=== PATIENT | male | born 1990 | race Caucasian/White ===

== ENCOUNTER 2017-12-30 03:49 | Emergency (ER) | payer BC ==
[~2017-12-30] VITALS: Ht 182.9 cm; Wt 109.2 kg
[~2017-12-30 03:49] MED LIST: AUGMENTIN875TAB PO; CEPHALEXIN500 MG PO; MEDDOSEPAK PO; NO HOME MEDS; PROAIR HFA IN; ROBITUSSIN AC10 ML PO; VENTOLIN HFA IN; ZOFRAN ODT8 MG PO
[2017-12-30 04:32] LABS: HEMATOCRIT 41.4 % (39.0-50.0); HEMOGLOBIN 14.7 g/dl (14.0-18.0); IMMATURE GRANULOCYTES 0.5 % (0.0-5.0); MEAN CORPUSCULAR HGB 31.2 pG CALC (26.0-32.0); MEAN CORPUSCULAR HGB CONC 35.5 g/L CALC (32.0-36.0); NEUT# 4.8 thou/uL (1.82-7.42); RED BLOOD COUNT 4.71 mill/uL (4.70-6.10)
[2017-12-30 04:37] LABS: MEAN CELL VOLUME 87.9 fL CALC (80.0-100.0)
[2017-12-30 04:39] LABS: ALBUMIN 4.5 g/dL (3.2-5.0); ALKALINE PHOSPHATASE 89 u/l (38-126); AMYLASE 41 u/l (30-110); BUN 11 mg/dL (9-20); BUN/CREATININE RATIO 11 (12-20 (CALC)); CARBON DIOXIDE 23 mmol/l (22-30); CHLORIDE 105 mmol/l (95-108); CREATININE 1.1 mg/dL (0.7-1.3); GFR > 60 ML/MIN (>=60 (CALC)); GFR FOR AFR.AMER. > 60 ML/MIN (>=60 (CALC)); LIPASE 36 u/l (23-300); SGOT/AST 25 u/l (17-59); SGPT/ALT 31 u/l (21-72); SODIUM 143 mmol/l (137-146); TOTAL PROTEIN 8.3 g/dL (6.3-8.2)
[2017-12-30 04:45] LABS: ANION GAP 18 (6-22 (CALC))
[2017-12-30 06:34] LABS: URINE BLOOD DIPSTICK LARGE (NEGATIVE); URINE GLUCOSE - DIPSTICK NEGATIVE (NEGATIVE); URINE KETONE TRACE mg/dL (NEGATIVE); URINE LEUK ESTERASE NEGATIVE (NEGATIVE); URINE PH 5.5 (4.5-8.0); URINE PROTEIN - DIPSTICK 100 mg/dL (NEG-TRACE); URINE SPECIFIC GRAVITY >=1.030
[2017-12-30 06:35] LABS: URINE BACTERIA MANY hpf; URINE BILIRUBIN - DIPSTICK SMALL (NEGATIVE); URINE CLARITY TURBID; URINE COLOR BROWN; URINE EPITHELIAL CELLS FEW EPI/hpf (0-FEW); URINE NITRITE - DIPSTICK POSITIVE (Negative); URINE RBC 25-50 RBC/hpf (0-5)
[2017-12-30 06:36] LABS: URINE AMORPH SEDIMENT MANY hpf (NONE-FER)
[2017-12-30] MEDS ORDERED: TAMSULOSIN0.4 MG PO (10:20)
[2017-12-30] MEDS ORDERED: CEPHALEXIN500 M1 PO (10:20)
[2017-12-30] MEDS ORDERED: HYDROCO/APAP1 TA9 PO (10:20)
[2017-12-30] MEDS ORDERED: MOTRIN400 MG PO (10:20)
[2017-12-30 11:15] VITALS: BP 158/71
== END 2017-12-30 11:35 | disposition still patient (30) | DRG 694 ==
LOC: ED 03:49
PROVIDERS: Family Medicine
DX: N20.1 Calculus of ureter (principal); J45.909 Unspecified asthma, uncomplicated

== ENCOUNTER 2018-05-20 19:56 | Emergency (ER) | payer BC ==
[~2018-05-20] VITALS: Ht 182.9 cm; Wt 112.4 kg
[~2018-05-20 19:56] MED LIST changes: +CEPHALEXIN500 M1 PO; +HYDROCO/APAP1 TA9 PO; +MOTRIN400 MG PO; +TAMSULOSIN0.4 MG PO
[2018-05-20] MEDS ORDERED: KEFLEX500 M1 PO (21:06)
[2018-05-20 21:11] VITALS: BP 113/71
== END 2018-05-20 21:11 | disposition home or self-care (01) | DRG 605 ==
LOC: ED 19:56
PROC: 0HQFXZZ Repair Right Hand Skin, External Approach (ICD-10-PCS; principal; 2018-05-20)
DX: S61.210A Laceration without foreign body of right index finger without damage to nail, initial encounter (principal); W26.0XXA Contact with knife, initial encounter; Y92.009 Unspecified place in unspecified non-institutional (private) residence as the place of occurrence of the external cause

== ENCOUNTER 2021-03-20 01:41 | Emergency (ER) | payer BC ==
[~2021-03-20] VITALS: Ht 182.9 cm; Wt 120.0 kg
[~2021-03-20 01:41] MED LIST changes: +KEFLEX500 M1 PO
[2021-03-20] MEDS ORDERED: VENTOLIN HFA IN (02:40)
[2021-03-20] MEDS ORDERED: PREDNISONE50 MG PO (02:40)
[2021-03-20 03:40] VITALS: BP 130/85
== END 2021-03-20 03:40 | disposition home or self-care (01) | DRG 203 ==
LOC: ED 01:41
DX: J45.901 Unspecified asthma with (acute) exacerbation (principal)

== ENCOUNTER 2023-05-10 11:01 | Emergency (ER) | payer OTHER, MEDICAID ==
[~2023-05-10] VITALS: Ht 182.9 cm; Wt 129.0 kg
[2023-05-10] VITALS (14 sets, daily range): BP systolic 110–147; BP diastolic 61–86
[~2023-05-10 11:01] MED LIST changes: +PREDNISONE50 MG PO; +PROVENTIL HFA108 MCG INHW/SPAC; +TORADOL PO
[2023-05-10 11:27] LABS: BASO% 0.8 % (0-3); EOS% 5.2 % (0-8); HEMATOCRIT 45.7 % (39.0-50.0); HEMOGLOBIN 15.4 g/dl (14.0-18.0); IMMATURE GRANULOCYTES 0.5 % (0.0-5.0); LYMPH% 30.9 % (15-41); MEAN CORPUSCULAR HGB 28.3 pG CALC (26.0-32.0); MEAN CORPUSCULAR HGB CONC 33.7 g/dL CAL (32.0-36.0); MONO% 5.8 % (2-13); NEUT# 4.72 thou/uL (1.82-7.42); NEUT% 56.8 % (42-76); RED BLOOD COUNT 5.44 mill/uL (4.70-6.10); RED CELL DISTRI WIDTH 12.9 % (11.5-15.5)
[2023-05-10 11:55] LABS: ALKALINE PHOSPHATASE 84 u/l (38-126); ANION GAP 19 (6-22 (CALC)); BUN 16 mg/dL (9-20); BUN/CREATININE RATIO 14 (12-20 (CALC)); CARBON DIOXIDE 18 mmol/l (22-30); CHLORIDE 107 mmol/l (95-108); CREATININE 1.1 mg/dL (0.7-1.3); GFR FOR AFR.AMER. > 60 ML/MIN (>=60 (CALC)); GFR OTHER RACES > 60 ML/MIN (>=60 (CALC)); POTASSIUM 4.3 mmol/l (3.5-5.1); SGOT/AST 36 u/l (17-59); SODIUM 140 mmol/l (137-146); TOTAL PROTEIN 8.6 g/dL (6.3-8.2)
[2023-05-10 12:02] LABS: BILIRUBIN, TOTAL 0.7 mg/dL (0.2-1.3)
[2023-05-10 13:18] LABS: URINE BILIRUBIN - DIPSTICK Negative (NEGATIVE); URINE BLOOD DIPSTICK Negative (NEGATIVE); URINE GLUCOSE - DIPSTICK Negative (NEGATIVE); URINE KETONE Negative (NEGATIVE); URINE LEUK ESTERASE Negative (NEGATIVE); URINE NITRITE - DIPSTICK Negative (Negative); URINE PH 5.5 (4.5-8.0); URINE PROTEIN - DIPSTICK Negative (NEG-TRACE); URINE SPECIFIC GRAVITY >=1.030; URINE UROBILINOGEN - DIPSTICK 0.2 E.U./dL (0.2)
[2023-05-10 13:19] LABS: URINE COLOR Yellow
[2023-05-10] MEDS ORDERED: PROVENTIL HFA108 MCG PO (14:22)
[2023-05-10] MEDS ORDERED: ZPAK PO (14:22)
[2023-05-10] MEDS ORDERED: PREDNISONE20 MG PO (14:22)
== END 2023-05-10 14:34 | disposition home or self-care (01) | DRG 203 ==
LOC: ED 11:01
PROVIDERS: Emergency Medicine
DX: J45.901 Unspecified asthma with (acute) exacerbation (principal); F17.200 Nicotine dependence, unspecified, uncomplicated